=== PATIENT | female | born 1990 | race Caucasian/White ===

== ENCOUNTER 2022-03-01 07:30 | Outpatient (RCR) | payer OTHER, SELFPAY ==
--- NOTE | 2021-11-22 15:39 | PT.OPEX ---
Please sign the PT evaluation attached below. Thank you. PT [place] Out[facility] Eval PT [facility] Outpatient Eval Start: 11/15/21 15:05 Freq: Status: Active Protocol: Document 11/22/21 13:00 TLQ (Rec: 11/22/21 15:16 TLQ [id number]) E-signed By Cherie Lawson DPT Physical Therapy Outpatient Evaluation Insurance Information Insurance Name Yamil Ludwig Medical Diagnosis Pain in Right Shoulder (M25. 511) Treating Diagnosis Pain in R shoulder (M25.511) Cervicalgia (M54.2) Referring MD Dr. Null Subjective Subjective Patient reports she had pain years ago in her shoulder, thought it was impingement. Her shoulder started bothering her on July 12 of this year while she was at work, has to do a lot of lifting. Has been writing down when she feels the pain at work. 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 Sometimes the pain feels like its under her shoulder bone. Gets some locking up of her shoulder, felt tight. Has pain at home when trying to curl her hair, gets some numbness/tingling down to her elbow, describes pain as feeling hot. Sometimes the pain wakes her up at night if she's sleeping on her shoulder. Has tried Ibuprofen which was prescribed by her MD, helps for a little bit but then the pain comes back. Reports having headaches 2-3x per week. Pain Comments 3/10 consistently throughout the day 7/10 at worst Date of Last Physician Visit 11/08/21 Current Work Status Light Duty Occupation Works at [employer], does a lot of lifting Precautions Treatment Precautions/Contraindications MD ordered RTW with the following restrictions until 12/08/21: no lifting >20lbs limit frequency of lifting > 10lbs limit frequency of overhead lifting Therapy Limitations/Systems Review Not Limited Objective Range of Motion Shoulder: flexion - L 152, R 134 pain in anterior shoulder abduction - L 170, R 145 tight at elbow internal rotation - L 70, R 48 external rotation - L 45, R 60 anterior shoulder pain Strength Shoulder: flexion - L 5/5, R 4+/5 abduction - L 5/5, R 5/5 adduction - L 5/5, R 4/5 internal rotation - L 5/5, R 4 /5 external rotation - L 4+/5, R 4-/5 Elbow: flexion - L 5/5, R 4/5 pain near proximal bicep tendon extension - L 5/5, R 4+/5 Palpation TTP - bicep muscle belly, proximal bicep tendon, upper trap, infraspinatus, and scalenes on R, suboccipitals Hypermobile GH on R in all direction Hypomobile 1st rib on R Cervical side glide - normal mobility, positive patient response Posture forward shoulders, R>L Other/Pertinent Objective Cervical spine: Quadrant - negative Spurlings - negative Distraction - positive response Shoulder: Apprehension test - negative Clunk test -negative Limon-Rodrigo test - positive for posterior pain on R Neer impingement test - negative Speed's (biceps) test - positive on R for elbow pain [place]'s active compression ( SLAP) test - negative Empty can (supraspinatus) test - negative Drop arm test - negative Lift-off (subscapularis) test - negative Molly's (TOS) test - positive for numbness/tingling in middle 3 fingers on R ULTT - positive with radial nerve, reports feeling heavy Functional Test Performed & Score SPADI (11/22/21) pain score - 48% disability score - 42.5% total score - 58/130 Assessment Assessment/Impression Patient is a 31 year old female who presents to physical therapy with R shoulder pain, is currently on lifting restrictions for weights >20lb by her MD. She has symptoms and special tests responses that are consistent for bicep impingement and thoracic outlet syndrome. Special tests for labral or rotator cuff involvement were negative. She presented with hypermobility of her R glenohumeral joint and hypomobility of the R 1st rib. She was tender with palpation of her R bicep muscle belly, proximal bicep tendon, scalenes, and suboccipitals. She had a positive response to cervical distraction. Due to pain with R shoulder AROM, shoulder weakness, and symptom severity, the patient will benefit from skilled interventions to address these limitations and allow her to return to work at [employer]. Primary Functional Limitations pain in R shoulder, pain with overhead activities, pain with lifting, pain with curling hair, pain driving machinery at work Plan of Care Rehabilitation Potential Good Physical Therapy Goals STG - Patient will decrease subjective report of pain from 7/10 to 4/10 for improved ability to lift her arm overhead in 5 weeks. LTG - Patient will improve R shoulder ROM to be within 5 degrees of her L shoulder for improved mobility needed for work-related tasks in 10 weeks . LTG - Gross R shoulder strength will increase to 5/5 for improved functional strength needed to lift items over 20 lbs at work in 10 weeks. LTG - Patient will adhere to HEP to manage symptoms IND at home in 10 weeks. Treatment Plan/Direct Interventions Electrical Stimulation,Joint Mobilization,Manual Therapy, Therapeutic Activities, Therapeutic Exercises Frequency/Duration 1x/week for 8-10 weeks Patient Will Be Discharged From Therapy Completion of LTG(s),Skills Plateau,Independent w/HEP, Independently Progressing Evaluation Billing Untimed Code Treatment Minutes 45 Complexity Moderate Certification Information Provider Signature Shows Agreement With POC & Medical Necessity Physician Comment/Change Comment or Changes Physician NPI Number #
== END 2022-04-27 10:07 | disposition home or self-care (01) ==
PROVIDERS: PCP Obstetrics & Gynecology; Visit Provider Family Medicine
DX: M25.511 Pain in right shoulder (principal); Z51.89 Encounter for other specified aftercare
CPT/HCPCS: 97110; 97140; 97162

== ENCOUNTER 2022-04-11 08:12 | Outpatient (CLI) | payer OTHER, SELFPAY ==
--- NOTE | 2022-04-11 08:15 | CRLHL7_ITS ---
For Patients: As a result of the Century Cures Act, medical imaging exams and procedure reports are released immediately into your electronic medical record. You may view this report before your referring provider. If you have questions, please contact your health care provider. Indication: Right shoulder pain. Procedure : Informed consent was obtained. The site was marked. Time-out was performed. The skin of the right shoulder was cleansed with ChloraPrep. A sterile drape was placed. 8 cc of 1 percent lidocaine was administered for superficial anesthesia. Subsequently a 22 gauge spinal needle was introduced into the right shoulder joint under intermittent fluoroscopic guidance. Injection of 2 cc nonionic Omnipaque 240 contrast confirmed intra-articular location. Subsequently 11 cc of dilute gadolinium were injected. The needle was removed and hemostasis achieved with direct pressure. A dressing was placed. The patient tolerated the procedure well without immediate complication and was immediately sent to MRI for imaging. Total fluoroscopy time 39 seconds. Impression: Successful fluoroscopically guided right shoulder arthrogram for MRI. Dictated by Ananda Lee MD @ 04/11/2022 12:14:50 PM (Electronically Signed)
--- NOTE | 2022-04-11 09:15 | MR_ITS ---
Patient:Sincere Ramirez D.O.B:?1990 Sex:?Female Phone:?[phone] [facility] MRN:?[id number] Exam Date:?04/11/2022 ? EXAM: MR ARTHROGRAM OF THE RIGHT SHOULDER CLINICAL: Evaluate biceps and tendon labrum. COMPARISON: X-rays dated 12/25/2021. TECHNICAL: Exam performed after injection of gadolinium based contrast into the right shoulder. MRI sequences of the right shoulder: coronal obliques: PD, T2, STIR, T1FS sagittal obliques: PD, T2 axials: PD, T2 SEDATION: None. CONTRAST: Intra-articular gadolinium based contrast. FINDINGS: Rotator cuff: Supraspinatus/Infraspinatus: Mild tendinosis of the distal supraspinatus and infraspinatus tendons without significant tendon tear. No significant fatty atrophy of the muscle bellies. Teres minor: No tendinopathy, tear or atrophy. Subscapularis: Mild tendinosis and mild thin linear partial interstitial tearing of the distal tendon as seen on sagittal series 8 images 11-13. No significant fatty atrophy of the muscle belly. Bursae: Subacromial-subdeltoid: No significant bursal fluid. Subcoracoid: No significant bursal fluid. Coracoacromial arch: Acromion morphology: Type II. No os acromiale. Acromiohumeral space: Within normal limits. Coracohumeral space: Within normal limits. Biceps tendon, long head: Intraarticular and extraarticular segments are intact without rupture, tendinopathy or displacement. Glenohumeral joint: Contrast distends the joint capsule consistent with successful intra-articular injection. Articular cartilage: No osteochondral abnormalities. Capsule: No convincing adhesive capsulitis or capsular injury. Labrum: There is tearing of the superior labrum posterior to the biceps anchor as seen on coronal series 6 image 15-17. There is tearing of the posterior inferior labrum on axial series 3 images 17-18. Anterior and anteroinferior labrum are attenuated. No perilabral cyst identified. Bones: No suspicious marrow signal alteration, fracture line or dislocation. Acromioclavicular joint: Mild changes of arthrosis. No AC joint injury/widening. IMPRESSION: 1. Mild tendinosis of the distal supraspinatus, infraspinatus and subscapularis tendons with mild thin linear partial interstitial tearing of the distal subscapularis tendon. 2. Tearing of the superior labrum and posterior inferior labrum. Anterior and anteroinferior labrum are attenuated. 3. Mild AC joint arthrosis. 4. Normal appearance of the long head biceps tendon. No glenohumeral chondral defects or fracture. JCZ Electronically signed on 04/11/2022 1:28:00 PM by Randy Singh D.O.
== END 2022-04-11 08:13 | disposition home or self-care (01) ==
PROVIDERS: Visit Provider Physician Assistant
DX: M25.511 Pain in right shoulder (principal); M75.101 Unspecified rotator cuff tear or rupture of right shoulder, not specified as traumatic; S43.431A Superior glenoid labrum lesion of right shoulder, initial encounter; M19.011 Primary osteoarthritis, right shoulder
CPT/HCPCS: 23350; 73222; 77002; A9575; Q9966